=== PATIENT | male | born 1975 | race Caucasian/White ===

== ENCOUNTER 2021-10-19 04:42 | Inpatient (IN) | payer MEDICAID ==
[~2021-10-19] VITALS: Ht 193 cm; Wt 131.5 kg
[2021-10-19 04:47] VITALS: BP 134/70
--- NOTE | 2021-10-19 05:20 | NUR ---
46/M C/O SOB X 1 MONTH. PATIENT STATES "I FEEL LIKE I CANT BREATH WHEN IM LAYING DOWN." PT STATES HE HAS NONRAD. CP 09/18. REPORTS SAEED LOWER EDEMA AND COUGH. PATIENT STATES HE HAS MOMENTS OF DIZZINESS AND NAUSEA. DENIES VOMIT, DIARRHEA, CONSTIPATION. STATED HE WAS ABLE TO AMBULATE EXCEPT WHEN HE FEELS DIZZY. PMHX SLEEP APNEA, HEART MURMUR, HTN, COPD, HX OF BLOOD CLOTHS MEDS DENIES, NONCOMPLIANT, BUT HAD LASIX FROM LAST MED VISIT, LAST DOSE WAS YESTERDAY ALLERGIES: PCN
[2021-10-19] MEDS ORDERED: FUROSEMIDE 40 MG/4 ML VIAL IVP ONE (05:50)
[2021-10-19] MEDS ORDERED: NITROGLYCERIN 2% 1 GM PKT TP ONE (05:50)
--- NOTE | 2021-10-19 06:00 | NUR ---
RAD AT BEDSIDE
--- NOTE | 2021-10-19 06:15 | NUR ---
IV ESTABLISHED, BLOOD COLLECTED &
--- NOTE | 2021-10-19 06:15 | NUR ---
URINE COLLECTED AND WALKED TO LAB
[2021-10-19 06:54] LABS: BASOPHILS % (AUTO) 0.6 % (0.0-2.0); EOSINOPHILS # (AUTO) 0.3 K/uL (0-0.4); EOSINOPHILS % (AUTO) 3.3 % (0.0-4.0); HEMATOCRIT 38.1 % (36-52); HEMOGLOBIN 12.3 g/dL (12.0-18.0); LYMPHOCYTES # (AUTO) 2.3 K/uL (2.0-11.5); LYMPHOCYTES % (AUTO) 29.6 % (20.5-51.1); MEAN CORPUSCULAR HEMOGLOBIN 26 pg (27-31); MEAN CORPUSCULAR HGB CONC 32 g/dL (33-37); MEAN CORPUSCULAR VOLUME 80.2 fL (80-94); MONOCYTES # (AUTO) 0.6 K/uL (0.8-1.0); MONOCYTES % (AUTO) 8.2 % (1.7-9.3); NEUTROPHILS # (AUTO) 4.6 K/uL (1.8-7.7); NEUTROPHILS % (AUTO) 58.3 % (42.2-75.2); PLATELET COUNT (AUTO) 169 K/uL (140-450); RED BLOOD CELL COUNT(AUTO) 4.76 MIL/uL (4.20-6.10); RED CELL DISTRIBUTION WIDTH 18.5 % (11.6-13.7); WHITE BLOOD COUNT (AUTO) 7.8 K/uL (4.8-10.8)
[2021-10-19 07:05] LABS: BARBITURATE, URINE NEGATIVE ng/ml (NEG <=200); BENZODIAZEPINE, URINE NEGATIVE ng/mL (NEG <=200); CANNABINOID, URINE NEGATIVE ng/mL (NEG <=50); COCAINE, URINE NEGATIVE ng/mL (NEG <=300); OPIATE, URINE NEGATIVE ng/mL (NEG <=2000); PHENCYCLIDINE SCREEN,URINE NEGATIVE ng/mL (NEG <=25)
--- NOTE | 2021-10-19 07:11 | NUR ---
DR. RAMIRES AT BEDSIDE ASSESSING PATIENT
--- NOTE | 2021-10-19 07:12 | NUR ---
REPORT GIVEN TO KIRIT MCCLELLAN. TRANSFER OF CARE AT THIS TIME
[2021-10-19 07:38] LABS: ALBUMIN 3.4 g/dL (3.4-5.0); ANION GAP 12.4 (8-16); CARBON DIOXIDE 21.8 mmol/L (21-32); CREATININE 1.1 mg/dL (0.6-1.3); POTASSIUM 4.2 mmol/L (3.5-5.1); TOTAL BILIRUBIN 1.4 mg/dL (0.0-1.0)
[2021-10-19] MEDS ORDERED: ONDANSETRON 4 MG/2 ML VIAL IVP PRN (09:25)
--- NOTE | 2021-10-19 12:04 | NUR ---
PT PROVIDED WITH LUNCH TRAY AT THIS TIME.
[2021-10-19 14:50] LABS: CHOL/HDL RATIO 5.1 (1-4.5)
[2021-10-19] MEDS: ACETAMINOPHEN EXTRA STRENGTH 500 MG TAB PO PRN (18:46)
--- NOTE | 2021-10-19 19:18 | NUR ---
REPORT RECEIVED FROM KIRIT REED. CONTINUITY OF PT CARE AT THIS TIME.
--- NOTE | 2021-10-19 19:37 | NUR ---
PT REPORTS HE USED TO TAKE PRESCRIPTIONI MEDICATIONS MONTHS AGO BUT NO LONGER TAKES ANY.
--- NOTE | 2021-10-19 19:43 | NUR ---
PT LAYING IN BED LOCKED IN LOWEST POSITION W HOB ELEVATED. PT REPORTING SOB AND IS REQUESTING MORE LASIX (MD SHAFFER MADE AWARE, AWATITING REPONSE). PT DENIES ANY PAIN OR OTHER SYMPTOMS AND REPORTS HEADACHE FROM EARLIER HAS RESOLVED. VSS. 97% ON RA W BREATHING EVEN AND UNLABORED.
[2021-10-19] MEDS: FUROSEMIDE 40 MG/4 ML VIAL IVP SCH (20:11)
[2021-10-19] MEDS: METOPROLOL 25 MG TAB PO SCH (21:08)
--- NOTE | 2021-10-19 21:09 | NUR ---
PT DENIES ONGOING SOB. NO OTHER SYMPTOMS.
[2021-10-19 21:20] VITALS: BP 117/76
--- NOTE | 2021-10-19 21:20 | NUR ---
RECEIVED PT AAOX4 , FROM ER / WHEELCHAIR - WALK TO BED - STEADY GAIT - NID - ON RA - O2 SAT WNL . IV SITE INTACT AND PATENT. ADM. ASSESSMENT - DONE , PLAN OD CARE DISCUSSED AND VERBALIZES UNDERSTANDING - CALL LIGHT / URINAL WITHIN REACH , ON TELE MONITOR . DENIES PAIN AT THIS TIME , GOT LASIX AT ER , ON STRICT I &O .
--- NOTE | 2021-10-19 21:23 | NUR ---
Pt report given to KIRIT GLYNN. Transfer of care at this time.
--- NOTE | 2021-10-19 21:24 | NUR ---
Patient will be admitted to care of . Admited to TELEMETRY. Will go to [id number]. Belongings list completed. Report to KIRIT GLYNN.
--- NOTE | 2021-10-19 21:25 | NUR ---
FOR US MINER. LIMITED - PER US TECH - PLACE PT ON NPO POST MN AND THE PROCEDURE WILL BE DONE BY 6AM ESCOBAR - INFORM PT .
[2021-10-20] VITALS: BP 116/69
--- NOTE | 2021-10-20 01:43 | NUR ---
C/O PAINFUL LEGS CRAMPS - THE PT'S DESCRIBED THE PAIN - REFERRED TO DR. BROWN - MADE NEW ORDER - WILL CARRY OUT .
[2021-10-20] MEDS ORDERED: HYDROcodone/APAP 5/325 MG 1 TAB TAB PO PRN (01:50)
--- NOTE | 2021-10-20 02:13 | NUR ---
TRY TO GIVE NORCO - BUT HE IGNORING ME - RAFA THE SEDIMENTATIONIST IS AT BEDSIDE WITNESSING THE PT'S REFUSAL TO MED .- O2 SAT 93 %
--- NOTE | 2021-10-20 03:50 | NUR ---
C/O SOB AFTER HE PED - O2 SAT 95 %- HOOK TO O2 AT 2LPM/ NC - INFORM DR Donna BROWN . WILL CONT . TO MONITOR
[2021-10-20 04:00] VITALS: BP 111/65
[2021-10-20 05:54] LABS: BASOPHILS % (AUTO) 0.5 % (0.0-2.0); EOSINOPHILS # (AUTO) 0.2 K/uL (0-0.4); EOSINOPHILS % (AUTO) 2.9 % (0.0-4.0); HEMATOCRIT 37.3 % (36-52); HEMOGLOBIN 11.8 g/dL (12.0-18.0); LYMPHOCYTES # (AUTO) 1.7 K/uL (2.0-11.5); LYMPHOCYTES % (AUTO) 24.2 % (20.5-51.1); MEAN CORPUSCULAR HEMOGLOBIN 25 pg (27-31); MEAN CORPUSCULAR HGB CONC 32 g/dL (33-37); MEAN CORPUSCULAR VOLUME 79.9 fL (80-94); MONOCYTES # (AUTO) 0.6 K/uL (0.8-1.0); MONOCYTES % (AUTO) 8.2 % (1.7-9.3); NEUTROPHILS # (AUTO) 4.6 K/uL (1.8-7.7); NEUTROPHILS % (AUTO) 64.2 % (42.2-75.2); PLATELET COUNT (AUTO) 156 K/uL (140-450); RED BLOOD CELL COUNT(AUTO) 4.67 MIL/uL (4.20-6.10); RED CELL DISTRIBUTION WIDTH 17.6 % (11.6-13.7); WHITE BLOOD COUNT (AUTO) 7.1 K/uL (4.8-10.8)
--- NOTE | 2021-10-20 06:00 | NUR ---
SLEEPING - CHEST RISE AND FALL EQUALLY - WHILE I''M TRYING TO FIX THE TELE BOX - HE REFUSE IT . - TRY LATTER .
[2021-10-20 06:10] LABS: ANION GAP 8.7 (8-16); CARBON DIOXIDE 26.8 mmol/L (21-32); CREATININE 1.3 mg/dL (0.6-1.3); POTASSIUM 3.5 mmol/L (3.5-5.1)
[2021-10-20 06:15] LABS: MAGNESIUM 1.7 mg/dL (1.8-2.4); PHOSPHORUS 4.4 mg/dL (2.5-4.9)
--- NOTE | 2021-10-20 07:20 | NUR ---
RECEIVED REPORT FROM TRACK LAYING SUPERVISOR NURSE. PT ASLEEP. ON ROOM AIR WITH BREATHING UNLABORED. PT ON BEDREST, SKIN IS WARM AND INTACT, WITH BILATERAL FEET EDEMA (+2, +3). IV ON LEFT HAND, SALINE LOCKED. PT IS STABLE. WILL CONTINUE TO MONITOR.
--- NOTE | 2021-10-20 07:38 | NUR ---
ENDORSE - PT - STABLE - AWAKEABLE - ON TELE MONITOR . I ENDORSE TO [facility] I PUT THE PT. ON NPO PER US TECH BEC. THE PT IS FOR US ADB. LIMITED TODAT AT THE SAME TIME LEGS US - ONCE THE PROCEDURE DONE - PUT IT BACK THE PT ON CARDIAC DIET - KIRIT DAVIS VERBALIZES UNDERSTANDING . Addendum: 10/20/21 at 0756 by Kerrie Cobb RN COPY OF AUTHORIZATION FOR DISCLOSURE OF MEDICAL INFO - ENDORSED AND GAVE IT TO CO NURSES OF [facility] - I ENDORSE ONCE THEY GOT CONSENT FOR DISCLOSUE OF INFO - THEY HAVE TO FAX THE REQUEST TO PREVIOUS HOSPITAL WHERE IN THE PT WAS ADMITTED - DR. SHAFFER ASKING THE COPY OF PREVIOUS COPY OF PT'S MEDICAL RECORD , NURSE RYAN EARLY, ET AL VERBALIZES UNDERSTANDING .
[2021-10-20 08:00] VITALS: BP 100/69
[2021-10-20] MEDS: lisinopriL 5 MG TAB PO SCH (09:00)
[2021-10-20] MEDS: METOPROLOL 25 MG TAB PO SCH ×2 (09:00→21:26)
[2021-10-20] MEDS: FUROSEMIDE 40 MG/4 ML VIAL IVP SCH ×2 (09:38→17:48)
--- NOTE | 2021-10-20 09:38 | NUR ---
DUE MED GIVEN; HELD METOPROLOL AND LISINOPRIL-BLOOD PRESSURE LOW. WILL CONTINUE TO MONITOR.
[2021-10-20 12:00] VITALS: BP 118/82
--- NOTE | 2021-10-20 12:00 | NUR ---
PT LYING ON HIS BED, AWAKE. PT DENIES PAIN AT THIS TIME. WILL CONTINUE TO MONITOR.
[2021-10-20 16:00] VITALS: BP 116/80
--- NOTE | 2021-10-20 16:00 | NUR ---
PT IS AWAKE, DENIES PAIN AT THIS TIME. WILL CONTINUE TO MONITOR.
[2021-10-20] MEDS: ACETAMINOPHEN EXTRA STRENGTH 500 MG TAB PO PRN (17:54)
--- NOTE | 2021-10-20 17:54 | NUR ---
PT COMPLAINING OF PAIN ON EPIGASTRIC AREA, WITH A PAIN LEVEL OF 3 OUT 10. TYLENOL GIVEN PER DR'S ORDER.
[2021-10-20] MEDS ORDERED: MAG SULF 2000 MG/WATER PREMIX 50 ML IV SCH (18:15)
--- NOTE | 2021-10-20 19:10 | NUR ---
PT ENDORSED TO SPACE BUYER NURSE. DISCUSSED PLAN OF CARE.
[2021-10-20 19:41] LABS: ANION GAP 9.2 (8-16); CARBON DIOXIDE 31.1 mmol/L (21-32); CREATININE 1.5 mg/dL (0.6-1.3); POTASSIUM 4.3 mmol/L (3.5-5.1)
[2021-10-20 20:00] VITALS: BP 128/85
--- NOTE | 2021-10-20 23:32 | NUR ---
PATIENT REQUEST FOR MELATONIN FOR SLEEP. LEFT MESSAGE FOR PROVIDER. HEDY TREVINO RN
[2021-10-20] MEDS ORDERED: MELATONIN 3 MG TAB PO PRN (23:50)
[2021-10-21] VITALS: BP 119/85
--- NOTE | 2021-10-21 03:32 | NUR ---
PATIENT REMOVES OWN DESIGN ASSISTANT. SAYS IT IS CAUSING HIM NOT BE ABLE TO SLEEP. REPLACED X1, WILL REPLACE AGAIN AT THIS TIME. HEDY TREVINO RN
--- NOTE | 2021-10-21 03:36 | NUR ---
PATIENT REFUSES DYER ASSISTANT AT THIS TIME. HEDY TREVINO RN
[2021-10-21 04:00] VITALS: BP 127/96
[2021-10-21] MEDS ORDERED: LORazepam 2 MG/ML VIAL IM/IVP PRN (05:25)
--- NOTE | 2021-10-21 05:40 | NUR ---
Education about refusing care like heart monitor as it is necessary for prevention of untoward event like a heart attack. Patient refused treatment of ativan for anxiety/agitation. He says no I don't want it. Client Advocate education about flushing iv site with normal saline. Patient declines iv site maintenance. Patient provided education regarding functioning iv site when needed for iv medication. Hasmukh Perez RN
[2021-10-21 06:07] LABS: HEPATITIS A ANTIBODY IGM Negative (Negative); HEPATITIS B CORE AB TOTAL Negative (Negative); HEPATITIS B SURFACE ANTIBODY Reactive (.); HEPATITIS B SURFACE ANTIGEN Negative (Negative)
--- NOTE | 2021-10-21 07:03 | NUR ---
HANDOFF WITH KIRIT ROMAN. HEDY TREVINO RN
--- NOTE | 2021-10-21 07:10 | NUR ---
RECEIVED PT ASLEEP, VISIBLE CHEST RISE AND FALL , AROUSABLE WHEN CALLED BY NAME, IV LINE NOTED ON THE LEFT HAND G. 20 ON SALINE LOCK, PT IS ON ROOM AIR AND NO SIGN OF DISTRESS NOTED, WILL MONITOR PT.
[2021-10-21 08:00] VITALS: BP 132/69
[2021-10-21] MEDS: METOPROLOL 25 MG TAB PO SCH (08:44)
[2021-10-21] MEDS: lisinopriL 5 MG TAB PO SCH (08:44)
[2021-10-21] MEDS: FUROSEMIDE 40 MG/4 ML VIAL IVP SCH (08:44)
--- NOTE | 2021-10-21 08:44 | NUR ---
PT HAD TAKEN ALL HIS AM MEDICATIONS, STILL REFUSING TO HAVE THE CENTRAL SERVICE SUPPLY DISTRIBUTOR PLACE ON HIME.
--- NOTE | 2021-10-21 08:49 | NUR ---
PATIENT HAS BEEN SCREENED AND CATEGORIZED MODERATE NUTRITION RISK. PATIENT WILL BE SEEN WITHIN 3-5 DAYS OF ADMISSION. MARÍA ELENA HORVATH RD Addendum: 10/21/21 at 1614 by María Elena Horvath RD (LATE ENTRY D/T TECHNICAL ISSUES ON 10/19/21)
[2021-10-21] MEDS ORDERED: POTASSIUM CHLORIDE 10 MEQ TABER PO PRN (10:40)
[2021-10-21] MEDS ORDERED: MAG SULF 2000 MG/WATER PREMIX 50 ML IV PRN (10:40)
[2021-10-21 12:00] VITALS: BP 98/71
[2021-10-21 12:03] LABS: BASOPHILS # (AUTO) 0.1 K/uL (0.00-0.22); BASOPHILS % (AUTO) 0.8 % (0.0-2.0); EOSINOPHILS # (AUTO) 0.3 K/uL (0-0.4); EOSINOPHILS % (AUTO) 3.3 % (0.0-4.0); HEMATOCRIT 41.5 % (36-52); HEMOGLOBIN 13.4 g/dL (12.0-18.0); LYMPHOCYTES # (AUTO) 1.9 K/uL (2.0-11.5); LYMPHOCYTES % (AUTO) 22.6 % (20.5-51.1); MEAN CORPUSCULAR HEMOGLOBIN 26 pg (27-31); MEAN CORPUSCULAR HGB CONC 32 g/dL (33-37); MEAN CORPUSCULAR VOLUME 78.7 fL (80-94); MONOCYTES # (AUTO) 0.7 K/uL (0.8-1.0); MONOCYTES % (AUTO) 8.7 % (1.7-9.3); NEUTROPHILS # (AUTO) 5.5 K/uL (1.8-7.7); PLATELET COUNT (AUTO) 206 K/uL (140-450); RED BLOOD CELL COUNT(AUTO) 5.27 MIL/uL (4.20-6.10); RED CELL DISTRIBUTION WIDTH 17.4 % (11.6-13.7); WHITE BLOOD COUNT (AUTO) 8.5 K/uL (4.8-10.8)
[2021-10-21 12:17] LABS: NEUTROPHILS % (AUTO) 64.6 % (42.2-75.2)
[2021-10-21] MEDS ORDERED: FURO-570 PO (12:36)
[2021-10-21] MEDS ORDERED: CARV3.12 PO (12:36)
[2021-10-21] MEDS ORDERED: LISI5TAB24 PO (12:36)
[2021-10-21 12:47] LABS: ANION GAP 13.9 (8-16); CREATININE 1.1 mg/dL (0.6-1.3); POTASSIUM 3.9 mmol/L (3.5-5.1)
[2021-10-21 16:00] VITALS: BP 98/71
--- NOTE | 2021-10-21 16:01 | NUR ---
DC PLANNING PATIENT IS A 49 YR OLD MALE WHO PRESENTED TO [facility]/ED FOR DYSPNEA ON 10/19/21 SW MET WITH PATIENT AT BEDSIDE FOR THE PURPOSE OF DISCUSSING AND GATHERING COLLATERAL INFORMATION. PATIENT REPORTED LIVING WITH HIS . PATIENT REPORTS EMERGENCY CONTACT AND MEDICAL DECISION MAKER CAS DURAN () [phone]. SW INQUIRED ON A.D, PATIENT DENIED CURRENTLY HAVING ONE IN PLACE AT THIS TIME. SW PROVIDED PATIENT WITH INFORMATION AND EDUCATION ON A.D AND OFFERED TO PROVIDE PATIENT WITH A.D PACKET; PATIENT WAS RECEPTIVE AND ACCEPTED A.D PACKET. SW ENCOURAGED PATIENT TO SPEAK ABOUT IT WITH AND TO MAKE DECISION WHEN APPROPRIATE FOR FAMILY. PATIENT REPORTS ONCE CLEARED FOR DISCHARGE WILL BE PICKING HIM UP FROM HOSPITAL AND AIDING IN HIS CARE. PATIENT REPORTS BEING INCONSISTENT WITH SEEING HIS PCP. PATIENT REPORTS BEING UNAWARE WHO HIS PCP CURRENTLY IS. SW SPOKE WITH PATIENT ON THE IMPORTANCE OF FOLLOW UP CARE, PATIENT WAS RECEPTIVE AND PROVIDED SW WITH PERMISSION TO SCHEDULE FOLLOW UP APPT WITH PCP. PATIENT DENIED BARRIERS IN ACCESSING NEEDED MEDICATION AND REPORTED RETRIEVING MEDICATIONS FROM [facility]. SW INQUIRED ON SUBSTANCE USE PATIENT TESTED POSITIVE FOR METH USE. PATIENT DENIED ACTIVE OR CURRENT USE. PATIENT REPORTED THAT HIS SUBSTANCE OF USE WAS METHAMPHETAMINE AND HEROINE WHICH HE REPORTS USING RECREATIONALLY. PATIENT REPORTS LAST USE WITH HEROINE HAS BEEN A WHILE PATIENT REPORTS LAST METH USE 90 DAYS OR MORE PRIOR, DESPITE TESTING POSITIVE. SW ATTEMPTED TO PROVIDE PATIENT WITH SUBSTANCE USE RESOURCES HOWEVER, PATIENT DECLINED. SW PROVIDED PATIENT WITH PSYCHOEDUCATION ON CUSTODIAL EFFECTS OF PROLONGED SUBSTANCE USE. PATIENT WAS RECEPTIVE AND REPORTED THAT HE IS CLEAN DESPITE TESTING POSITIVE. SW INQUIRED ON ANY ADDITIONAL RESOURCES NEEDED AT THIS TIME; PATIENT DECLIEND. SW WILL FOLLOW UP NEEDED.
--- NOTE | 2021-10-21 17:20 | NUR ---
DISCHARGE PT TO HOME ACCOMPANIED BY . LINE AND ARM BAND REMOVED, DISCHARGE INSTRUCTIONS GIVEN TO PT AND VEBALIZED UNDERSTANDING, PT IS STABLE FOR DISCHARGE .
[2021-10-21] MEDS ORDERED: ENOXAPARIN 30 MG/0.3 ML SYR SUBQ SCH (21:00)
[2021-10-21] MEDS ORDERED: carvediloL 3.125 MG TAB PO SCH (21:00)
[2021-10-21] MEDS ORDERED: ENOXAPARIN 100 MG/ML SYR SUBQ SCH (21:00)
[2021-10-21] MEDS ORDERED: LOVENOX 1MG/KG Q12H SUBQ SCH (21:00)
[2021-10-22] MEDS ORDERED: FUROSEMIDE 40 MG TAB PO SCH (09:00)
--- NOTE | 2021-10-23 08:57 | NUR ---
ESMER WARE OUTREACHED TO PATIENTS PCP FACILITY; [facility], VIA TELEPHONE FOR THE PURPOSE OF SCHEDULING PATIENTS FOLLOW UP APPT. JEANIE SPOKE WITH FIRST COAT OPERATOR BASIL, AN APPT FOR PATIENT WAS SCHEDULED FOR 10/25/21 AT 11 AM AT [address] [place] [address]. IMMEDIATELY AFTER CALL, JEANIE OUTREACHED TO PATIENT AND LEFT A MESSAGE WITH APPT DETAILS THAT INCLUDED; TIME, DATE, ADDRESS AND PHONE NUMBER TO PCP FACILITY. JEANIE REQUESTED A CALL BACK TO CONFIRM PATIENT RECEIVED MESSAGE.
== END 2021-10-21 17:20 | disposition home or self-care (01) | DRG 194 ==
LOC: MED 04:42 → MTU 09:24
PROVIDERS: ADMIT Student in an Organized Health Care Education/Training Program; ATTEND Student in an Organized Health Care Education/Training Program
DX: I11.0 Hypertensive heart disease with heart failure (principal); N17.0 Acute kidney failure with tubular necrosis; J44.1 Chronic obstructive pulmonary disease with (acute) exacerbation; F15.10 Other stimulant abuse, uncomplicated; E83.42 Hypomagnesemia; D64.9 Anemia, unspecified; Z20.822 Contact with and (suspected) exposure to COVID-19; I42.0 Dilated cardiomyopathy; I50.23 Acute on chronic systolic (congestive) heart failure; E66.01 Morbid (severe) obesity due to excess calories; Z68.35 Body mass index [BMI] 35.0-35.9, adult; Z88.0 Allergy status to penicillin; Z59.00 Homelessness unspecified; Z87.891 Personal history of nicotine dependence; Z91.14 Patient's other noncompliance with medication regimen
CPT/HCPCS: 36415; 71045; 76705; 80048; 80053; 80305; 83735; 83880; 84100; 84443; 84484; 85025; 86704; 86706; 86708; 86709; 86803; 87081; 87340; 93005; 93925; 93970; 96374; 99285; J1940; J2060; J3475; Q0092

== ENCOUNTER 2022-02-18 16:15 | Emergency (ER) | payer MEDICAID ==
[~2022-02-18] VITALS: Ht 182.9 cm; Wt 129.0 kg
[~2022-02-18 16:15] MED LIST: CARV3.12 PO; FURO-570 PO; LISI5TAB24 PO
[2022-02-18 16:18] VITALS: BP 155/111
--- NOTE | 2022-02-18 16:26 | NUR ---
PT AMB TO BED 11
[2022-02-18] MEDS ORDERED: predniSONE 20 MG TAB PO ONE (17:05)
[2022-02-18] MEDS ORDERED: FUROSEMIDE 40 MG/4 ML VIAL IVP ONE (17:05)
[2022-02-18] MEDS ORDERED: ALBUTEROL SULFATE/IPRATROPIU 3 ML SOL IH ONE (17:05)
--- NOTE | 2022-02-18 17:27 | NUR ---
SURFBOARD MAKER AT BEDSIDE
[2022-02-18 17:30] LABS: BASOPHILS % (AUTO) 0.4 % (0.0-2.0); EOSINOPHILS # (AUTO) 0.2 K/uL (0-0.4); EOSINOPHILS % (AUTO) 3.8 % (0.0-4.0); HEMOGLOBIN 11.8 g/dL (12.0-18.0); LYMPHOCYTES # (AUTO) 1.2 K/uL (2.0-11.5); LYMPHOCYTES % (AUTO) 20.7 % (20.5-51.1); MEAN CORPUSCULAR HEMOGLOBIN 26 pg (27-31); MEAN CORPUSCULAR HGB CONC 32 g/dL (33-37); MEAN CORPUSCULAR VOLUME 82.5 fL (80-94); MONOCYTES # (AUTO) 0.5 K/uL (0.8-1.0); MONOCYTES % (AUTO) 8.3 % (1.7-9.3); NEUTROPHILS # (AUTO) 3.9 K/uL (1.8-7.7); NEUTROPHILS % (AUTO) 66.8 % (42.2-75.2); PLATELET COUNT (AUTO) 171 K/uL (140-450); RED BLOOD CELL COUNT(AUTO) 4.48 MIL/uL (4.20-6.10); RED CELL DISTRIBUTION WIDTH 20.7 % (11.6-13.7); WHITE BLOOD COUNT (AUTO) 5.8 K/uL (4.8-10.8)
[2022-02-18 17:48] LABS: ALBUMIN 3.3 g/dL (3.4-5.0); ANION GAP 13.9 (8-16); CARBON DIOXIDE 25.7 mmol/L (21-32); CREATININE 1.3 mg/dL (0.6-1.3); POTASSIUM 3.6 mmol/L (3.5-5.1); TOTAL BILIRUBIN 1.3 mg/dL (0.0-1.0)
--- NOTE | 2022-02-18 18:12 | NUR ---
47/M PRESENTS TO ED WITH C/O SOB SINCE YESTERDAY. PATIENT REPORTS HX OF CHF AND STATES HE TENDS TO HAVE THESE EPISODES. PATIENT REPORTS INTERMITTENT EPISODES OF SHARP CHEST PAIN, DENIES FEVERS, CHILLS, COUGH OR URINARY SYMPTOMS.
--- NOTE | 2022-02-18 18:22 | NUR ---
PATIENT PROVIDED WITH URINAL
--- NOTE | 2022-02-18 19:14 | NUR ---
Pt report given to KIRIT REYES. Transfer of care at this time.
[2022-02-18 22:13] VITALS: BP 130/94
--- NOTE | 2022-02-18 22:13 | NUR ---
Patient discharged with v/s stable. Written and verbal after care instructions given and explained heart failure, self care. Patient verbalized understanding. Ambulatory with steady gait. ID band removed. All questions addressed prior to discharge. Advised to follow up with PMD.
== END 2022-02-18 22:13 | disposition home or self-care (01) ==
LOC: MED 16:15
DX: R06.02 Shortness of breath (principal); I50.9 Heart failure, unspecified; J44.1 Chronic obstructive pulmonary disease with (acute) exacerbation; I11.0 Hypertensive heart disease with heart failure; F17.200 Nicotine dependence, unspecified, uncomplicated; Z79.899 Other long term (current) drug therapy; Z88.0 Allergy status to penicillin; Z86.73 Personal history of transient ischemic attack (TIA), and cerebral infarction without residual deficits
CPT/HCPCS: 36415; 71045; 80053; 83880; 84484; 85025; 93005; 94640; 96374; 99285; J1940; J7512

== ENCOUNTER 2022-12-03 05:25 | Inpatient (IN) | payer MEDICAID ==
[~2022-12-03] VITALS: Ht 193 cm; Wt 127.0 kg
[2022-12-03 05:36] VITALS: BP 105/69
--- NOTE | 2022-12-03 05:44 | NUR ---
AMB. TO BED 2 WITH NO DISTRESS. NOTIFIE
[2022-12-03 05:54] LABS: BASOPHILS % (AUTO) 0.5 % (0.0-2.0); EOSINOPHILS # (AUTO) 0.2 K/uL (0-0.4); EOSINOPHILS % (AUTO) 2.4 % (0.0-4.0); HEMATOCRIT 42.8 % (36-52); HEMOGLOBIN 14.2 g/dL (12.0-18.0); LYMPHOCYTES # (AUTO) 1.7 K/uL (2.0-11.5); LYMPHOCYTES % (AUTO) 20.1 % (20.5-51.1); MEAN CORPUSCULAR HEMOGLOBIN 31 pg (27-31); MEAN CORPUSCULAR HGB CONC 33 g/dL (33-37); MEAN CORPUSCULAR VOLUME 91.9 fL (80-94); MONOCYTES # (AUTO) 0.7 K/uL (0.8-1.0); MONOCYTES % (AUTO) 8.2 % (1.7-9.3); NEUTROPHILS # (AUTO) 5.7 K/uL (1.8-7.7); NEUTROPHILS % (AUTO) 68.8 % (42.2-75.2); PLATELET COUNT (AUTO) 167 K/uL (140-450); RED BLOOD CELL COUNT(AUTO) 4.66 MIL/uL (4.20-6.10); RED CELL DISTRIBUTION WIDTH 14.2 % (11.6-13.7); WHITE BLOOD COUNT (AUTO) 8.3 K/uL (4.8-10.8)
--- NOTE | 2022-12-03 06:02 | NUR ---
Beni hester in ED - 12/03/22 at 0603 by [email or web address] INTERVIEWED PATIENT AT [facility], HAS COMPLAINTS OF SHORTNESS OF BREATH DX: HISTORY OF COPD
--- NOTE | 2022-12-03 06:03 | NUR ---
INTERVIEWED PATIENT AT [facility], HAS COMPLAINTS OF SHORTNESS OF BREATH DX: HISTORY OF CHF
[2022-12-03 06:17] LABS: ALBUMIN 3.5 g/dL (3.4-5.0); ANION GAP 11.6 (8-16); CARBON DIOXIDE 25.6 mmol/L (21-32); CREATININE 1.3 mg/dL (0.6-1.3); POTASSIUM 4.2 mmol/L (3.5-5.1); TOTAL BILIRUBIN 0.9 mg/dL (0.0-1.0)
[2022-12-03] MEDS ORDERED: ASPIRIN 81 MG TAB.CHEW PO ONE (06:25)
--- NOTE | 2022-12-03 07:11 | NUR ---
Pt report given to DEMETRA. Transfer of care at this time.
--- NOTE | 2022-12-03 07:14 | NUR ---
REPORT FR FRACISCO BETH , ALL QUESTIONS WERE ANSWERD, PT ASLEEP BUT AWAKEN EASILY , BETTER AIR EXCHANGE , SPO2 WNL ON 2 LNC, CP MINIMAL
[2022-12-03] MEDS ORDERED: FUROSEMIDE 40 MG/4 ML VIAL IVP ONE (07:20)
[2022-12-03 09:05] LABS: BARBITURATE, URINE NEGATIVE ng/ml (NEG <=200)
[2022-12-03 09:06] LABS: BENZODIAZEPINE, URINE NEGATIVE ng/mL (NEG <=200); CANNABINOID, URINE NEGATIVE ng/mL (NEG <=50); COCAINE, URINE POSITIVE ng/mL (NEG <=300); OPIATE, URINE NEGATIVE ng/mL (NEG <=2000); PHENCYCLIDINE SCREEN,URINE NEGATIVE ng/mL (NEG <=25)
--- NOTE | 2022-12-03 09:20 | NUR ---
PT DIURESING , VOIDED 700 ML, LIU COLRED URINE
--- NOTE | 2022-12-03 09:22 | NUR ---
2ND TROP =90 , MD MADE AWARE
[2022-12-03] MEDS: FUROSEMIDE 40 MG/4 ML VIAL IVP SCH (09:29)
--- NOTE | 2022-12-03 10:33 | NUR ---
Per patient, does not take any prescribed medication. Med rec completed.
[2022-12-03] MEDS ORDERED: ONDANSETRON 4 MG/2 ML VIAL IVP PRN (11:20)
[2022-12-03] MEDS ORDERED: POTASSIUM CHLORIDE 10 MEQ TABER PO PRN (11:20)
[2022-12-03] MEDS ORDERED: MAG SULF 2000 MG/WATER PREMIX 50 ML IV PRN (11:20)
[2022-12-03] MEDS ORDERED: ACETAMINOPHEN 325 MG TAB PO PRN (11:20)
[2022-12-03] MEDS ORDERED: HYDROcodone/APAP 7.5/325 MG 1 TAB PO PRN (11:20)
[2022-12-03 11:50] LABS: BILIRUBIN,URINE NEGATIVE (NEGATIVE); BLOOD, URINE NEGATIVE (NEGATIVE); COLOR,URINE YELLOW (YELLOW); LEUKOCYTE ESTERASE ,URINE NEGATIVE (NEGATIVE); NITRITE, URINE NEGATIVE (NEGATIVE); PH,URINE 6.5 (5.0-9.0); UGLUCOSE NEGATIVE (NEGATIVE)
[2022-12-03 11:51] LABS: ANION GAP 12.4 (8-16); CARBON DIOXIDE 26.9 mmol/L (21-32); CREATININE 1.2 mg/dL (0.6-1.3); POTASSIUM 4.3 mmol/L (3.5-5.1)
[2022-12-03 12:00] LABS: PROTHROMBIN TIME 11.5 secs (10.8-13.4)
[2022-12-03 12:06] LABS: CHOL/HDL RATIO 3.5 (1-4.5); FREE T4 (FREE THYROXINE) 1.18 ng/dL (0.76-1.46); MAGNESIUM 1.8 mg/dL (1.8-2.4); PHOSPHORUS 3.9 mg/dL (2.5-4.9); THYROID STIMULATING HORMONE 1.61 uIU/mL (0.34-3.74)
[2022-12-03 12:14] VITALS: BP 138/87
[2022-12-03 12:38] LABS: APPEARANCE,URINE HAZY (CLEAR); RBC,URINE 0-5 /HPF (0-5)
[2022-12-03 12:39] LABS: CALCIUM OXALATE CRYSTALS,UR None Seen /HPF (None Seen); COARSE GRANULAR CASTS,URINE None Seen /LPF (None Seen); FINE GRANULAR CASTS,URINE None Seen /LPF (None Seen); HYALINE CASTS, URINE None Seen /LPF (None Seen); OTHER CASTS, URINE None Seen /LPF (None Seen); OTHER CRYSTALS,URINE None Seen /HPF (None Seen); RED BLOOD CELL CASTS,URINE None Seen /LPF (None Seen); TRICHOMONAS,URINE None Seen /HPF (None Seen); TRIPLE PHOSPHATE CRYSTAL,UR None Seen /HPF (None Seen); URIC ACID CRYSTALS,URINE None Seen /HPF (None Seen); URINE AMORPHOUS URATE None Seen /HPF (None Seen); WAXY CASTS,URINE None Seen /LPF (None Seen); YEAST,URINE None Seen /HPF (None Seen)
--- NOTE | 2022-12-03 14:12 | NUR ---
PATIENT HAS BEEN SCREENED AND CATEGORIZED MODERATE NUTRITION RISK. PATIENT WILL BE SEEN WITHIN 3-5 DAYS OF ADMISSION. REVIEWED BY CHASE HORVATH RD
[2022-12-03 16:00] VITALS: BP 128/89
--- NOTE | 2022-12-03 19:20 | NUR ---
ENDORSED PT TO CONSULTATIVE SALES ASSOCIATE NURSE FOR CONTINUITY OF CARE.
--- NOTE | 2022-12-03 19:25 | NUR ---
RECEIVED PT FROM AM NURSE FOR CONTINUITY OF CARE. PT IS STABLE
[2022-12-03 20:00] VITALS: BP 118/85
[2022-12-03] MEDS: carvediloL 3.125 MG TAB PO SCH (20:53)
[2022-12-03] MEDS: DOCUSATE SODIUM 100 MG GELCAP PO SCH (20:53)
[2022-12-04] VITALS: BP 117/80
--- NOTE | 2022-12-04 01:00 | NUR ---
PATIENT ASLEEP, ALL SAFETY MEASURES IN PLACE,CALL LIGHT IN PLACE NO DISTRESS NOTED
[2022-12-04 04:00] VITALS: BP 120/76
[2022-12-04 06:35] LABS: BASOPHILS % (AUTO) 0.3 % (0.0-2.0); EOSINOPHILS # (AUTO) 0.3 K/uL (0-0.4); EOSINOPHILS % (AUTO) 3.5 % (0.0-4.0); HEMATOCRIT 42.4 % (36-52); HEMOGLOBIN 14.2 g/dL (12.0-18.0); LYMPHOCYTES # (AUTO) 1.5 K/uL (2.0-11.5); LYMPHOCYTES % (AUTO) 20.6 % (20.5-51.1); MEAN CORPUSCULAR HEMOGLOBIN 30 pg (27-31); MEAN CORPUSCULAR HGB CONC 34 g/dL (33-37); MEAN CORPUSCULAR VOLUME 89.6 fL (80-94); MONOCYTES # (AUTO) 0.5 K/uL (0.8-1.0); MONOCYTES % (AUTO) 6.7 % (1.7-9.3); NEUTROPHILS % (AUTO) 68.9 % (42.2-75.2); PLATELET COUNT (AUTO) 162 K/uL (140-450); RED BLOOD CELL COUNT(AUTO) 4.73 MIL/uL (4.20-6.10); RED CELL DISTRIBUTION WIDTH 13.8 % (11.6-13.7); WHITE BLOOD COUNT (AUTO) 7.2 K/uL (4.8-10.8)
[2022-12-04 06:55] LABS: MAGNESIUM 1.7 mg/dL (1.8-2.4); PHOSPHORUS 3.7 mg/dL (2.5-4.9)
--- NOTE | 2022-12-04 07:10 | NUR ---
RECEIVED BEDSIDE REPORT BY NIGHT NURSE JERSEY FOR CONTINUITY OF CARE. INITIAL ASSESSMENT DONE. ALERT AND ORIENTED X 4. RESP. EVEN AND UNLABORED. IV SITE INTACT, ON SALINE LOCK. NO C/O PAIN OR DISCOMFORT. CALL LIGHT KEPT WITHIN REACH. PT WILL MONITOR CLOSELY..
--- NOTE | 2022-12-04 07:15 | NUR ---
ENDORSED PT TO AM NURSE FOR CONTINUITY OF CARE. PT IS STABLE
[2022-12-04 07:19] LABS: CARBON DIOXIDE 26.6 mmol/L (21-32); POTASSIUM 3.6 mmol/L (3.5-5.1)
[2022-12-04 08:00] VITALS: BP 149/99
[2022-12-04] MEDS: carvediloL 3.125 MG TAB PO SCH ×2 (08:55→21:05)
--- NOTE | 2022-12-04 08:55 | NUR ---
SCHEDULED MEDICATION. TOLERATED WELL. DOCUSATE SODIUM WAS NOT GIVEN D/T PT REFUSED.
[2022-12-04] MEDS: lisinopriL 5 MG TAB PO SCH (08:56)
[2022-12-04] MEDS: DOCUSATE SODIUM 100 MG GELCAP PO SCH ×2 (08:57→21:05)
[2022-12-04] MEDS: PANTOPRAZOLE 40 MG INJ VIAL IVP SCH (09:00)
[2022-12-04] MEDS: FUROSEMIDE 40 MG/4 ML VIAL IVP SCH (09:00)
[2022-12-04 12:00] VITALS: BP 136/77
--- NOTE | 2022-12-04 12:04 | NUR ---
MAGNESIUM 1.7 L, PRN MAG RIDER GIVEN BY KRISTEN BETH. TOLERATED WELL.
[2022-12-04 16:00] VITALS: BP 120/77
--- NOTE | 2022-12-04 18:25 | NUR ---
REINSERTED IV TO RFA 18 G, WITH GOOD BLOOD RETURN. TOLERATED WELL.
--- NOTE | 2022-12-04 19:26 | NUR ---
BEDSIDE REPORT GIVEN TO NIGHT NURSE STEPHANIA FOR CONTINUITY OF CARE. REMAINS STABLE.
[2022-12-04 20:00] VITALS: BP 109/83
--- NOTE | 2022-12-04 20:00 | NUR ---
ASSESSMENT COMPLETED PLAN OF CARE REVIEWED PT COMPLIANT AT THIS TIME ORIENTED TO CALL LIGHT AND MADE AWARE TO CALL FOR ASSISTANCE WILL CONTINUE TO MONITOR AND ASSESS
--- NOTE | 2022-12-04 22:20 | NUR ---
PT ENDORSES SAEED LOWER EXTREMITY LEG PAIN NORCO GIVEN ORDERED HOMANS SIGN NEGATIVE WILL CONTINUE TO MONITOR AND ASSESS
[2022-12-05] VITALS: BP 101/78
[2022-12-05 04:00] VITALS: BP 122/69
[2022-12-05 05:47] LABS: BASOPHILS % (AUTO) 0.5 % (0.0-2.0); EOSINOPHILS # (AUTO) 0.3 K/uL (0-0.4); EOSINOPHILS % (AUTO) 3.9 % (0.0-4.0); HEMATOCRIT 43.4 % (36-52); HEMOGLOBIN 14.6 g/dL (12.0-18.0); LYMPHOCYTES # (AUTO) 1.8 K/uL (2.0-11.5); LYMPHOCYTES % (AUTO) 27.1 % (20.5-51.1); MEAN CORPUSCULAR HEMOGLOBIN 30 pg (27-31); MEAN CORPUSCULAR HGB CONC 34 g/dL (33-37); MEAN CORPUSCULAR VOLUME 90.3 fL (80-94); MONOCYTES # (AUTO) 0.5 K/uL (0.8-1.0); MONOCYTES % (AUTO) 7.4 % (1.7-9.3); NEUTROPHILS # (AUTO) 4.1 K/uL (1.8-7.7); NEUTROPHILS % (AUTO) 61.1 % (42.2-75.2); PLATELET COUNT (AUTO) 183 K/uL (140-450); RED BLOOD CELL COUNT(AUTO) 4.81 MIL/uL (4.20-6.10); RED CELL DISTRIBUTION WIDTH 14.1 % (11.6-13.7); WHITE BLOOD COUNT (AUTO) 6.7 K/uL (4.8-10.8)
[2022-12-05 06:24] LABS: ANION GAP 13.1 (8-16); CARBON DIOXIDE 27.2 mmol/L (21-32); CREATININE 1.2 mg/dL (0.6-1.3); POTASSIUM 3.3 mmol/L (3.5-5.1)
--- NOTE | 2022-12-05 06:53 | NUR ---
ALL NEEDS ANTICIPATED AND MET WILL ENDORSE CARE TO ONCOMING SHIFT
--- NOTE | 2022-12-05 07:03 | NUR ---
RECEIVED BEDSIDE REPORT BY NIGHT NURSE STEPHANIA FOR CONTINUITY OF CARE. INITIAL ASSESSMENT DONE. ALERT AND ORIENTED X 4. SKIN WARM TO TOUCH. IV SITE INTACT, ON SALINE LOCK. NOT IN ANY DISTRESS NOTED. CALL LIGHT KEPT WITHIN REACH. PT WILL MONITOR CLOSELY.
[2022-12-05 07:26] LABS: MAGNESIUM 1.8 mg/dL (1.8-2.4); PHOSPHORUS 4.1 mg/dL (2.5-4.9)
[2022-12-05 08:00] VITALS: BP 125/70
[2022-12-05] MEDS ORDERED: FUROSEMIDE 40 MG/4 ML VIAL IVP SCH (09:00)
[2022-12-05] MEDS: DOCUSATE SODIUM 100 MG GELCAP PO SCH (09:00)
[2022-12-05] MEDS: carvediloL 3.125 MG TAB PO SCH (09:03)
--- NOTE | 2022-12-05 09:03 | NUR ---
SCHEDULED MEDICATIONS GIVEN. TOLERATED WELL.
[2022-12-05] MEDS: lisinopriL 5 MG TAB PO SCH (09:04)
--- NOTE | 2022-12-05 09:04 | NUR ---
PT REFUSED DOCUSATE SODIUM. EXPLAINED RISK AND BENEFITS BUT STILL REFUSED.
[2022-12-05] MEDS: PANTOPRAZOLE 40 MG INJ VIAL IVP SCH (10:08)
[2022-12-05 12:00] VITALS: BP 135/81
--- NOTE | 2022-12-05 12:10 | NUR ---
SEEN BY DR. LEBRON.
[2022-12-05] MEDS ORDERED: LISI2.5T12 PO (12:13)
[2022-12-05] MEDS ORDERED: FURO-570 PO (12:13)
[2022-12-05] MEDS ORDERED: CARV3.12 PO (12:13)
--- NOTE | 2022-12-05 14:50 | NUR ---
PT DISCHARGE TO HOME. ALERT AND ORIENTED X 4. RESP. EVEN AND UNLABORED. ID BAND AND IV REMOVED. DISCHARGE PAPERWORKS SIGNED AND DISCUSS BY PT. WITH HOME BIPAP. REMAINS STABLE.
== END 2022-12-05 14:50 | disposition home or self-care (01) | DRG 190 ==
LOC: MED 05:25 → MTU 08:20
DX: I21.4 Non-ST elevation (NSTEMI) myocardial infarction (principal); J96.00 Acute respiratory failure, unspecified whether with hypoxia or hypercapnia; I50.23 Acute on chronic systolic (congestive) heart failure; I42.0 Dilated cardiomyopathy; R65.10 Systemic inflammatory response syndrome (SIRS) of non-infectious origin without acute organ dysfunction; I11.0 Hypertensive heart disease with heart failure; F15.10 Other stimulant abuse, uncomplicated; Z20.822 Contact with and (suspected) exposure to COVID-19; J44.9 Chronic obstructive pulmonary disease, unspecified; Z88.0 Allergy status to penicillin; Z79.899 Other long term (current) drug therapy; Z83.3 Family history of diabetes mellitus; Z91.148 Patient's other noncompliance with medication regimen for other reason
CPT/HCPCS: 36415; 71045; 76705; 80048; 80053; 80305; 81001; 82140; 82150; 83036; 83605; 83690; 83735; 83880; 84100; 84439; 84443; 84484; 85025; 85610; 85730; 87081; 87086; 96374; 96375; 99285; C9113; J1940; J3475; Q0092

== ENCOUNTER 2023-01-01 22:26 | Emergency (ER) | payer MEDICAID ==
[~2023-01-01] VITALS: Ht 185.4 cm; Wt 127.0 kg
[~2023-01-01 22:26] MED LIST changes: +LISI2.5T12 PO; -LISI5TAB24 PO
[2023-01-01 22:58] VITALS: BP 129/99
[2023-01-01 23:45] LABS: BASOPHILS % (AUTO) 0.4 % (0.0-2.0); EOSINOPHILS # (AUTO) 0.2 K/uL (0-0.4); EOSINOPHILS % (AUTO) 2.3 % (0.0-4.0); HEMATOCRIT 41.7 % (36-52); HEMOGLOBIN 13.6 g/dL (12.0-18.0); LYMPHOCYTES # (AUTO) 1.6 K/uL (2.0-11.5); LYMPHOCYTES % (AUTO) 19.6 % (20.5-51.1); MEAN CORPUSCULAR HEMOGLOBIN 29 pg (27-31); MEAN CORPUSCULAR HGB CONC 33 g/dL (33-37); MEAN CORPUSCULAR VOLUME 89.7 fL (80-94); MONOCYTES # (AUTO) 0.6 K/uL (0.8-1.0); MONOCYTES % (AUTO) 7.2 % (1.7-9.3); NEUTROPHILS # (AUTO) 5.9 K/uL (1.8-7.7); NEUTROPHILS % (AUTO) 70.5 % (42.2-75.2); PLATELET COUNT (AUTO) 174 K/uL (140-450); RED BLOOD CELL COUNT(AUTO) 4.64 MIL/uL (4.20-6.10); RED CELL DISTRIBUTION WIDTH 14.3 % (11.6-13.7); WHITE BLOOD COUNT (AUTO) 8.4 K/uL (4.8-10.8)
[2023-01-02 00:03] LABS: ALBUMIN 3.5 g/dL (3.4-5.0); ANION GAP 14.1 (8-16); CARBON DIOXIDE 23.8 mmol/L (21-32); CREATININE 1.3 mg/dL (0.6-1.3); POTASSIUM 3.9 mmol/L (3.5-5.1); TOTAL BILIRUBIN 1.3 mg/dL (0.0-1.0)
[2023-01-02] MEDS ORDERED: IBUP-2213 PO (01:10)
--- NOTE | 2023-01-02 01:25 | NUR ---
AT BEDSIDE TO DISHCARGE PT. PT VERY VERBALLY ABUSIVE WITH STAFF. SECURITY CALLED PT WAS REFUSING TO GET UP AND LEAVE.
[2023-01-02 01:33] VITALS: BP 102/65
--- NOTE | 2023-01-02 01:33 | NUR ---
SECURITY AT BEDSIDE. PT CONTINUES TO BE VERBALLY ABUSIVE TO STAFF. PT GETS UP WITH ANGER, REFUSES TO SIGN DC PAPERWORK.
== END 2023-01-02 01:33 | disposition home or self-care (01) ==
LOC: MED 22:26
DX: R10.84 Generalized abdominal pain (principal); R11.0 Nausea; J45.909 Unspecified asthma, uncomplicated; J44.9 Chronic obstructive pulmonary disease, unspecified; I10 Essential (primary) hypertension; Z88.0 Allergy status to penicillin; Z79.899 Other long term (current) drug therapy
CPT/HCPCS: 36415; 80053; 83690; 85025; 99284